=== PATIENT | male | born 1965 | race African-American/Black ===

== ENCOUNTER 2020-07-25 10:54 | Inpatient (IN) | payer OTHER ==
[2020-07-25 13:13] LABS: BASO % 0.2 % (0-2.0); EOS % 0.7 % (0-4.5); HEMATOCRIT 12.5 % (35.4-49); LYMPH % 15.8 % (8-40); MEAN CELL VOLUME 59.8 fl (80-96); MEAN PLT VOLUME 7.2 fl (7.5-11.1); MONO % 10.5 % (3.8-10.2); NEUT % 72.8 % (42.8-82.8); PLATELET COUNT 383 K/MM3 (134-434); RBC 2.09 M/mm3 (4.00-5.60); RDW 19.3 % (11.9-15.9); WHITE BLOOD COUNT 14.4 K/mm3 (4.0-10.0)
[2020-07-25 13:16] LABS: MCH 17.3 pg (25.7-33.7)
[2020-07-25 13:25] LABS: INR 1.49 (0.83-1.09); PROTHROMBIN TIME (PATIENT) 18.1 SEC (9.7-13.0)
[2020-07-25 13:28] LABS: ACTIVATED PTT 35.5 SECONDS (25.2-36.5)
[2020-07-25 13:31] LABS: ALBUMIN 2.8 g/dl (3.4-5.0); BLOOD UREA NITROGEN 19.3 mg/dL (7-18); CALCIUM 9.1 mg/dL (8.5-10.1)
[2020-07-25 13:35] LABS: CREATININE 1.9 mg/dL (0.55-1.3)
[2020-07-25 13:36] LABS: BILIRUBIN,TOTAL 1.2 mg/dL (0.2-1); TOT PROT 9.1 g/dl (6.4-8.2)
[2020-07-25] MEDS ORDERED: FUROSEMIDE 40 MG/4 ML INJECTABLE VIAL IVPUSH ONE ×3 (13:36→19:00)
[2020-07-25 13:45] LABS: HEMOGLOBIN 3.6 GM/dL (11.7-16.9)
[2020-07-25] MEDS ORDERED: FUROSEMIDE 40 MG/4 ML INJECTABLE VIAL ONE ×3 (14:11→21:35)
[2020-07-25] MEDS ORDERED: ACETAMINOPHEN 325 MG TABLET (FP) PO PRN (15:42)
[2020-07-25] MEDS ORDERED: ALBUTEROL SO4 2.5/IPRATROPIUM 0.5 INH SOL 3 ML VIAL.NEB. NEB ONE ×2 (15:48→18:10)
[2020-07-25] MEDS ORDERED: ALBUTEROL SO4 HFA INHALER IH PRN (15:48)
[2020-07-25] MEDS: INSULIN SLIDING SCALE (NOVOLOG) 1 VIAL SQ SCH ×2 (16:58→22:49)
[2020-07-25 20:22] LABS: PH,URINE 5.5 (5.0-8.0); URINE APPEARANCE CLEAR; URINE BILIRUBIN NEGATIVE (NEGATIVE); URINE COLOR YELLOW; URINE GLUCOSE (UA) NEGATIVE (NEGATIVE); URINE KETONE NEGATIVE (NEGATIVE); URINE LEUK ESTERASE NEGATIVE (NEGATIVE); URINE NITRITE NEGATIVE (NEGATIVE); URINE PROTEIN NEGATIVE (NEGATIVE)
[2020-07-25] MEDS ORDERED: THIAMINE HCL 200 MG/2 ML VIAL ONE (21:34)
[2020-07-25] MEDS ORDERED: FOLIC ACID 1 MG TABLET (FP) ONE (21:35)
[2020-07-25] MEDS ORDERED: FUROSEMIDE 40 MG/4 ML INJECTABLE VIAL IVPUSH SCH (22:00)
[2020-07-25] MEDS: FOLIC ACID 1 MG TABLET (FP) PO SCH (22:04)
[2020-07-25] MEDS ORDERED: PANTOPRAZOLE SODIUM 40 MG VIAL ONE (22:13)
[2020-07-25] MEDS: THIAMINE HCL 200 MG/2 ML VIAL IVPB SCH (22:49)
[2020-07-25] MEDS: PANTOPRAZOLE SODIUM 40 MG VIAL IVPUSH SCH (22:50)
[2020-07-25 22:54] LABS: EOS % 0.9 % (0-4.5); HEMATOCRIT 17.7 % (35.4-49); LYMPH % 15.9 % (8-40); MCHC 29.9 g/dl (32.0-35.9); MEAN CELL VOLUME 66.3 fl (80-96); MEAN PLT VOLUME 7.4 fl (7.5-11.1); MONO % 9.5 % (3.8-10.2); NEUT % 72.7 % (42.8-82.8); PLATELET COUNT 371 K/MM3 (134-434); RBC 2.68 M/mm3 (4.00-5.60); RDW 25.5 % (11.9-15.9); WHITE BLOOD COUNT 13.7 K/mm3 (4.0-10.0)
[2020-07-25 23:00] LABS: INR 1.44 (0.83-1.09); MCH 19.8 pg (25.7-33.7); PROTHROMBIN TIME (PATIENT) 17.5 SEC (9.7-13.0)
[2020-07-25 23:02] LABS: HEMOGLOBIN 5.3 GM/dL (11.7-16.9)
[2020-07-26] MEDS ORDERED: FUROSEMIDE 40 MG/4 ML INJECTABLE VIAL ONE ×3 (05:04→14:10)
[2020-07-26] MEDS: FUROSEMIDE 40 MG/4 ML INJECTABLE VIAL IVPB SCH ×2 (05:15→14:19)
[2020-07-26] MEDS ORDERED: FUROSEMIDE 100 MG/10 ML INJECTABLE VIAL IVPB SCH (06:00)
[2020-07-26] MEDS: INSULIN SLIDING SCALE (NOVOLOG) 1 VIAL SQ SCH ×4 (07:25→21:59)
[2020-07-26] MEDS ORDERED: FUROSEMIDE 40 MG/4 ML INJECTABLE VIAL IVPUSH SCH (10:00)
[2020-07-26] MEDS ORDERED: FOLIC ACID 1 MG TABLET (FP) ONE (10:18)
[2020-07-26] MEDS ORDERED: THIAMINE HCL 200 MG/2 ML VIAL ONE (10:18)
[2020-07-26] MEDS ORDERED: PANTOPRAZOLE 40 MG TABLET ONE (10:18)
[2020-07-26] MEDS ORDERED: PANTOPRAZOLE SODIUM 40 MG VIAL ONE (10:21)
[2020-07-26] MEDS: PANTOPRAZOLE SODIUM 40 MG VIAL IVPUSH SCH ×2 (10:30→22:10)
[2020-07-26] MEDS: FOLIC ACID 1 MG TABLET (FP) PO SCH (10:30)
[2020-07-26] MEDS: THIAMINE HCL 200 MG/2 ML VIAL IVPB SCH (10:30)
[2020-07-26] MEDS ORDERED: FUROSEMIDE 40 MG/4 ML INJECTABLE VIAL IVPUSH ONE ×2 (11:27→19:00)
[2020-07-26 13:04] LABS: ALLENS TEST POSITIVE; ARTERIAL BLD GAS O2 SATURATION 95.6 mmHg (95-98); ARTERIAL BLOOD GAS BASE EXCESS 4.7 mmol/L (-2-2); ARTERIAL BLOOD GAS PO2 74.8 mmHg (80-100); ARTERIAL BLOOD GAS pH 7.457 (7.350-7.450)
[2020-07-26] MEDS ORDERED: ALBUTEROL SO4 2.5/IPRATROPIUM 0.5 INH SOL 3 ML VIAL.NEB. NEB PRN (13:23)
[2020-07-26 13:50] LABS: HEMATOCRIT 19.5 % (35.4-49); MCH 20.8 pg (25.7-33.7); MCHC 31.2 g/dl (32.0-35.9); MEAN CELL VOLUME 66.7 fl (80-96); MEAN PLT VOLUME 7.8 fl (7.5-11.1); PLATELET COUNT 363 K/MM3 (134-434); RBC 2.92 M/mm3 (4.00-5.60); RDW 26.9 % (11.9-15.9)
[2020-07-26 14:02] LABS: HEMOGLOBIN 6.1 GM/dL (11.7-16.9)
[2020-07-26 14:09] LABS: ALBUMIN 2.8 g/dl (3.4-5.0); CALCIUM 9.1 mg/dL (8.5-10.1)
[2020-07-26 14:10] LABS: BLOOD UREA NITROGEN 17.8 mg/dL (7-18)
[2020-07-26 14:13] LABS: CREATININE 1.6 mg/dL (0.55-1.3)
[2020-07-26 14:14] LABS: BILIRUBIN,TOTAL 2.7 mg/dL (0.2-1); TOT PROT 9.4 g/dl (6.4-8.2)
[2020-07-26 15:54] LABS: ANISOCYTOSIS 1+; MACROCYTOSIS 1+; PLATELET ESTIMATE NORMAL
[2020-07-26] MEDS ORDERED: POTASSIUM CHLORIDE TABS 20 MEQ TABLET.ER (FP) PO ONE ×2 (17:11→17:20)
[2020-07-26 22:33] VITALS: BMI 43.0
[2020-07-26 23:26] LABS: HEMATOCRIT 23.9 % (35.4-49); HEMOGLOBIN 7.4 GM/dL (11.7-16.9); MCH 21.7 pg (25.7-33.7); MCHC 31.1 g/dl (32.0-35.9); MEAN CELL VOLUME 69.8 fl (80-96); PLATELET COUNT 387 K/MM3 (134-434); RBC 3.42 M/mm3 (4.00-5.60); RDW 28.1 % (11.9-15.9)
[2020-07-27] MEDS: FUROSEMIDE 40 MG/4 ML INJECTABLE VIAL IVPB SCH ×2 (05:38→15:30)
[2020-07-27] MEDS: INSULIN SLIDING SCALE (NOVOLOG) 1 VIAL SQ SCH ×4 (07:01→21:29)
[2020-07-27 07:25] LABS: N-TERMINAL BNP 446.6 pg/ml (5-125)
[2020-07-27 07:55] LABS: CALCIUM 9.1 mg/dL (8.5-10.1)
[2020-07-27 07:56] LABS: BLOOD UREA NITROGEN 17.4 mg/dL (7-18)
[2020-07-27 07:59] LABS: CREATININE 1.5 mg/dL (0.55-1.3)
[2020-07-27 08:51] LABS: HEMATOCRIT 22.3 % (35.4-49); HEMOGLOBIN 7.1 GM/dL (11.7-16.9); MCH 22.8 pg (25.7-33.7); MCHC 31.8 g/dl (32.0-35.9); MEAN CELL VOLUME 71.6 fl (80-96); MEAN PLT VOLUME 8.6 fl (7.5-11.1); PLATELET COUNT 220 K/MM3 (134-434); RBC 3.11 M/mm3 (4.00-5.60); RDW 27.7 % (11.9-15.9); WHITE BLOOD COUNT 13.4 K/mm3 (4.0-10.0)
[2020-07-27] MEDS ORDERED: PT OWN MED DRAWER 7, Y5N ONE (10:04)
[2020-07-27] MEDS: FOLIC ACID 1 MG TABLET (FP) PO SCH (10:12)
[2020-07-27] MEDS: PANTOPRAZOLE SODIUM 40 MG VIAL IVPUSH SCH ×2 (10:12→21:26)
[2020-07-27] MEDS: THIAMINE HCL 200 MG/2 ML VIAL IVPB SCH (10:30)
[2020-07-27] MEDS: NICOTINE 14 MG/24 HOURS TOPICAL PATCH TD SCH (11:26)
[2020-07-27 16:01] LABS: HEMATOCRIT 25.8 % (35.4-49); HEMOGLOBIN 8.1 GM/dL (11.7-16.9); MCH 22.4 pg (25.7-33.7); MCHC 31.4 g/dl (32.0-35.9); MEAN CELL VOLUME 71.5 fl (80-96); MEAN PLT VOLUME 7.4 fl (7.5-11.1); PLATELET COUNT 366 K/MM3 (134-434); RBC 3.61 M/mm3 (4.00-5.60); RDW 28.9 % (11.9-15.9); WHITE BLOOD COUNT 15.8 K/mm3 (4.0-10.0)
[2020-07-27] MEDS ORDERED: AMPICILLIN SODIUM 1 GM VIAL ONE (21:14)
[2020-07-27] MEDS ORDERED: SODIUM CHLORIDE 100 ML IVPB ONE (21:14)
[2020-07-27] MEDS: AMPICILLIN - 1 GM in SODIUM CHLORIDE 100 ML IVPB SCH (21:26)
[2020-07-28] MEDS ORDERED: AMPICILLIN SODIUM 1 GM VIAL ONE ×4 (04:56→21:08)
[2020-07-28] MEDS ORDERED: SODIUM CHLORIDE 100 ML IVPB ONE ×4 (04:56→21:08)
[2020-07-28] MEDS: AMPICILLIN - 1 GM in SODIUM CHLORIDE 100 ML IVPB SCH ×4 (05:00→21:20)
[2020-07-28] MEDS: FUROSEMIDE 40 MG/4 ML INJECTABLE VIAL IVPB SCH (05:32)
[2020-07-28] MEDS: INSULIN SLIDING SCALE (NOVOLOG) 1 VIAL SQ SCH ×4 (06:22→21:20)
[2020-07-28] MEDS ORDERED: PT OWN MED DRAWER 7, Y5N ONE (08:51)
[2020-07-28] MEDS: THIAMINE HCL 200 MG/2 ML VIAL IVPB SCH (09:01)
[2020-07-28] MEDS: FOLIC ACID 1 MG TABLET (FP) PO SCH (09:01)
[2020-07-28] MEDS: PANTOPRAZOLE SODIUM 40 MG VIAL IVPUSH SCH ×2 (09:01→21:20)
[2020-07-28 09:35] LABS: BASO % 0.3 % (0-2.0); EOS % 1.9 % (0-4.5); HEMATOCRIT 25.8 % (35.4-49); MCH 22.7 pg (25.7-33.7); MCHC 31.1 g/dl (32.0-35.9); MEAN PLT VOLUME 7.8 fl (7.5-11.1); MONO % 8.8 % (3.8-10.2); PLATELET COUNT 387 K/MM3 (134-434); RBC 3.54 M/mm3 (4.00-5.60); RDW 28.4 % (11.9-15.9)
[2020-07-28] MEDS: NICOTINE 14 MG/24 HOURS TOPICAL PATCH TD SCH (09:48)
[2020-07-28 09:59] LABS: ALBUMIN 2.8 g/dl (3.4-5.0); CALCIUM 8.9 mg/dL (8.5-10.1)
[2020-07-28 10:02] LABS: CREATININE 1.4 mg/dL (0.55-1.3)
[2020-07-28 10:03] LABS: BILIRUBIN,TOTAL 2.1 mg/dL (0.2-1)
[2020-07-28 10:04] LABS: TOT PROT 9.1 g/dl (6.4-8.2)
[2020-07-28] MEDS: FUROSEMIDE 40 MG TABLET (FP) PO SCH (13:58)
[2020-07-29] MEDS ORDERED: SODIUM CHLORIDE 100 ML IVPB ONE ×3 (01:46→21:18)
[2020-07-29] MEDS ORDERED: AMPICILLIN SODIUM 1 GM VIAL ONE ×4 (01:46→21:25)
[2020-07-29] MEDS: AMPICILLIN - 1 GM in SODIUM CHLORIDE 100 ML IVPB SCH ×4 (02:03→21:50)
[2020-07-29 06:49] LABS: BASO % 0.3 % (0-2.0); EOS % 2.1 % (0-4.5); HEMATOCRIT 23.5 % (35.4-49); HEMOGLOBIN 7.4 GM/dL (11.7-16.9); LYMPH % 21.7 % (8-40); MCH 22.9 pg (25.7-33.7); MCHC 31.4 g/dl (32.0-35.9); MEAN CELL VOLUME 72.8 fl (80-96); MEAN PLT VOLUME 7.6 fl (7.5-11.1); MONO % 10.8 % (3.8-10.2); NEUT % 65.1 % (42.8-82.8); PLATELET COUNT 307 K/MM3 (134-434); RBC 3.22 M/mm3 (4.00-5.60); RDW 30.5 % (11.9-15.9); WHITE BLOOD COUNT 12.8 K/mm3 (4.0-10.0)
[2020-07-29] MEDS: FUROSEMIDE 40 MG TABLET (FP) PO SCH ×2 (06:49→13:44)
[2020-07-29] MEDS: INSULIN SLIDING SCALE (NOVOLOG) 1 VIAL SQ SCH ×4 (06:49→22:04)
[2020-07-29 07:18] LABS: BLOOD UREA NITROGEN 16.6 mg/dL (7-18); CALCIUM 8.2 mg/dL (8.5-10.1); MAGNESIUM 1.3 mg/dL (1.8-2.4)
[2020-07-29 07:20] LABS: ALBUMIN 2.6 g/dl (3.4-5.0)
[2020-07-29 07:21] LABS: CREATININE 1.4 mg/dL (0.55-1.3)
[2020-07-29 07:23] LABS: BILIRUBIN,TOTAL 1.5 mg/dL (0.2-1); TOT PROT 8.1 g/dl (6.4-8.2)
[2020-07-29] MEDS ORDERED: PT OWN MED DRAWER 7, Y5N ONE ×3 (09:27→21:19)
[2020-07-29] MEDS: THIAMINE HCL 200 MG/2 ML VIAL IVPB SCH (09:41)
[2020-07-29] MEDS: PANTOPRAZOLE SODIUM 40 MG VIAL IVPUSH SCH ×2 (09:41→21:51)
[2020-07-29] MEDS: FOLIC ACID 1 MG TABLET (FP) PO SCH (09:41)
[2020-07-29] MEDS: POTASSIUM CHLORIDE TABS 20 MEQ TABLET.ER (FP) PO SCH ×2 (09:41→21:50)
[2020-07-29] MEDS: NICOTINE 14 MG/24 HOURS TOPICAL PATCH TD SCH (09:42)
[2020-07-29 11:09] LABS: INR 1.21 (0.83-1.09); PROTHROMBIN TIME (PATIENT) 14.8 SEC (9.7-13.0)
[2020-07-29 11:12] LABS: ACTIVATED PTT 35.1 SECONDS (25.2-36.5)
[2020-07-29 14:48] LABS: URINE APPEARANCE CLEAR; URINE BILIRUBIN NEGATIVE (NEGATIVE); URINE COLOR DK YELLOW; URINE GLUCOSE (UA) NEGATIVE (NEGATIVE); URINE KETONE NEGATIVE (NEGATIVE); URINE LEUK ESTERASE NEGATIVE (NEGATIVE); URINE NITRITE NEGATIVE (NEGATIVE); URINE PROTEIN NEGATIVE (NEGATIVE)
[2020-07-29 18:59] LABS: BASO % 0.2 % (0-2.0); EOS % 2.2 % (0-4.5); HEMATOCRIT 25.9 % (35.4-49); HEMOGLOBIN 8.1 GM/dL (11.7-16.9); LYMPH % 18.3 % (8-40); MCH 23.4 pg (25.7-33.7); MCHC 31.4 g/dl (32.0-35.9); MEAN CELL VOLUME 74.5 fl (80-96); MEAN PLT VOLUME 7.8 fl (7.5-11.1); MONO % 9.6 % (3.8-10.2); NEUT % 69.7 % (42.8-82.8); PLATELET COUNT 320 K/MM3 (134-434); RBC 3.48 M/mm3 (4.00-5.60); RDW 30.4 % (11.9-15.9); WHITE BLOOD COUNT 12.5 K/mm3 (4.0-10.0)
[2020-07-30] MEDS ORDERED: AMPICILLIN SODIUM 1 GM VIAL ONE ×4 (01:26→21:12)
[2020-07-30] MEDS ORDERED: SODIUM CHLORIDE 100 ML IVPB ONE ×4 (01:27→21:13)
[2020-07-30] MEDS: AMPICILLIN - 1 GM in SODIUM CHLORIDE 100 ML IVPB SCH ×4 (02:09→21:59)
[2020-07-30] MEDS: FUROSEMIDE 40 MG TABLET (FP) PO SCH ×2 (07:01→13:51)
[2020-07-30] MEDS: INSULIN SLIDING SCALE (NOVOLOG) 1 VIAL SQ SCH ×4 (07:02→21:59)
[2020-07-30 08:12] LABS: BLOOD UREA NITROGEN 13.7 mg/dL (7-18); CALCIUM 8.4 mg/dL (8.5-10.1); MAGNESIUM 1.5 mg/dL (1.8-2.4)
[2020-07-30 08:13] LABS: ALBUMIN 2.5 g/dl (3.4-5.0)
[2020-07-30 08:15] LABS: CREATININE 1.3 mg/dL (0.55-1.3)
[2020-07-30 08:16] LABS: BILIRUBIN,TOTAL 1.4 mg/dL (0.2-1); PHOSPHOROUS 3.6 mg/dL (2.5-4.9); TOT PROT 8.5 g/dl (6.4-8.2)
[2020-07-30] MEDS ORDERED: POTASSIUM CHLORIDE TABS 20 MEQ TABLET.ER (FP) PO ONE (08:17)
[2020-07-30 08:18] LABS: BASO % 0.3 % (0-2.0); EOS % 2.3 % (0-4.5); HEMATOCRIT 24.9 % (35.4-49); HEMOGLOBIN 7.9 GM/dL (11.7-16.9); LYMPH % 20.2 % (8-40); MCH 23.4 pg (25.7-33.7); MCHC 31.7 g/dl (32.0-35.9); MEAN CELL VOLUME 73.7 fl (80-96); MEAN PLT VOLUME 7.9 fl (7.5-11.1); MONO % 9.1 % (3.8-10.2); NEUT % 68.1 % (42.8-82.8); PLATELET COUNT 299 K/MM3 (134-434); RBC 3.37 M/mm3 (4.00-5.60); RDW 30.9 % (11.9-15.9); WHITE BLOOD COUNT 11.8 K/mm3 (4.0-10.0)
[2020-07-30] MEDS ORDERED: PT OWN MED DRAWER 7, Y5N ONE ×3 (08:34→12:44)
[2020-07-30] MEDS ORDERED: MIDAZOLAM HCL 2 MG/2 ML SINGLE DOSE VIAL ONE ×2 (10:08)
[2020-07-30] MEDS ORDERED: LIDOCAINE VISCOUS 2% ORAL/TOP 20 ML UNIT-DOSE CUP ONE (10:08)
[2020-07-30] MEDS ORDERED: MAGNESIUM SULF 50% (8.12 MEQ/2 ML-1 GM VIAL) IVPB ONE (11:34)
[2020-07-30] MEDS: PANTOPRAZOLE 40 MG TABLET PO SCH (12:45)
[2020-07-30] MEDS: NICOTINE 14 MG/24 HOURS TOPICAL PATCH TD SCH (12:45)
[2020-07-30] MEDS: FOLIC ACID 1 MG TABLET (FP) PO SCH (12:45)
[2020-07-30] MEDS: THIAMINE HCL 200 MG/2 ML VIAL IVPB SCH (12:45)
[2020-07-30] MEDS: PANTOPRAZOLE SODIUM 40 MG VIAL IVPUSH SCH (12:54)
[2020-07-30 13:07] LABS: HEP B CORE AB, TOT Negative (Negative)
[2020-07-30] MEDS ORDERED: BISACODYL 5 MG TABLET.DR (FP) PO ONE (16:00)
[2020-07-30] MEDS ORDERED: PEG 3350/NA SULF BICARB CL/KCL 4000 ML SOLN.RECON PO ONE (17:00)
[2020-07-30] MEDS: POTASSIUM CHLORIDE TABS 20 MEQ TABLET.ER (FP) PO SCH (17:01)
[2020-07-30] MEDS ORDERED: MELATONIN 5 MG TABLETS PO PRN (22:00)
[2020-07-31] MEDS ORDERED: AMPICILLIN SODIUM 1 GM VIAL ONE ×4 (03:03→21:07)
[2020-07-31] MEDS ORDERED: SODIUM CHLORIDE 100 ML IVPB ONE ×4 (03:04→21:07)
[2020-07-31] MEDS: AMPICILLIN - 1 GM in SODIUM CHLORIDE 100 ML IVPB SCH ×4 (03:08→21:29)
[2020-07-31] MEDS: POTASSIUM CHLORIDE TABS 20 MEQ TABLET.ER (FP) PO SCH (06:18)
[2020-07-31] MEDS: INSULIN SLIDING SCALE (NOVOLOG) 1 VIAL SQ SCH ×4 (06:30→21:30)
[2020-07-31] MEDS: FUROSEMIDE 40 MG TABLET (FP) PO SCH ×2 (06:49→15:08)
[2020-07-31 07:39] LABS: BASO % 0.6 % (0-2.0); EOS % 3.2 % (0-4.5); HEMATOCRIT 24.3 % (35.4-49); HEMOGLOBIN 7.9 GM/dL (11.7-16.9); LYMPH % 17.6 % (8-40); MCH 25.1 pg (25.7-33.7); MCHC 32.7 g/dl (32.0-35.9); MEAN CELL VOLUME 76.7 fl (80-96); MEAN PLT VOLUME 8.8 fl (7.5-11.1); MONO % 8.3 % (3.8-10.2); NEUT % 70.3 % (42.8-82.8); PLATELET COUNT 257 K/MM3 (134-434); RBC 3.16 M/mm3 (4.00-5.60); RDW 31.5 % (11.9-15.9); WHITE BLOOD COUNT 10.9 K/mm3 (4.0-10.0)
[2020-07-31 07:52] LABS: ALBUMIN 2.6 g/dl (3.4-5.0); CALCIUM 8.6 mg/dL (8.5-10.1)
[2020-07-31 07:55] LABS: CREATININE 1.2 mg/dL (0.55-1.3)
[2020-07-31 07:57] LABS: BILIRUBIN,TOTAL 1.3 mg/dL (0.2-1); TOT PROT 8.5 g/dl (6.4-8.2)
[2020-07-31] MEDS ORDERED: PT OWN MED DRAWER 7, Y5N ONE (07:59)
[2020-07-31] MEDS: FOLIC ACID 1 MG TABLET (FP) PO SCH (09:34)
[2020-07-31] MEDS: PANTOPRAZOLE 40 MG TABLET PO SCH (09:34)
[2020-07-31] MEDS: NICOTINE 14 MG/24 HOURS TOPICAL PATCH TD SCH (09:35)
[2020-07-31] MEDS: THIAMINE HCL 200 MG/2 ML VIAL IVPB SCH (10:19)
[2020-07-31] MEDS ORDERED: FUROSEMIDE 40 MG/4 ML INJECTABLE VIAL IVPUSH ONE ×2 (12:15→16:00)
[2020-07-31] MEDS ORDERED: BISACODYL 5 MG TABLET.DR (FP) PO ONE (15:00)
[2020-07-31] MEDS ORDERED: POLYETHYLENE GLYCOL 3350 255 GM BTL PO ONE (16:00)
[2020-07-31] MEDS: IRON POLYSACCHARIDES 150 MG CAPSULE PO SCH (17:05)
[2020-08-01] MEDS ORDERED: AMPICILLIN SODIUM 1 GM VIAL ONE ×3 (03:36→16:44)
[2020-08-01] MEDS ORDERED: SODIUM CHLORIDE 100 ML IVPB ONE ×3 (03:37→16:44)
[2020-08-01] MEDS: AMPICILLIN - 1 GM in SODIUM CHLORIDE 100 ML IVPB SCH ×3 (03:39→17:10)
[2020-08-01] MEDS: INSULIN SLIDING SCALE (NOVOLOG) 1 VIAL SQ SCH ×4 (06:03→21:22)
[2020-08-01] MEDS: FUROSEMIDE 40 MG TABLET (FP) PO SCH ×2 (06:03→13:28)
[2020-08-01] MEDS ORDERED: PT OWN MED DRAWER 7, Y5N ONE (07:53)
[2020-08-01 08:03] LABS: BASO % 0.2 % (0-2.0); EOS % 3.3 % (0-4.5); HEMATOCRIT 27.8 % (35.4-49); HEMOGLOBIN 9.1 GM/dL (11.7-16.9); LYMPH % 17.8 % (8-40); MCH 25.4 pg (25.7-33.7); MCHC 32.6 g/dl (32.0-35.9); MEAN PLT VOLUME 8.5 fl (7.5-11.1); MONO % 8.5 % (3.8-10.2); NEUT % 70.2 % (42.8-82.8); PLATELET COUNT 260 K/MM3 (134-434); RBC 3.56 M/mm3 (4.00-5.60); WHITE BLOOD COUNT 10.6 K/mm3 (4.0-10.0)
[2020-08-01 08:32] LABS: ALBUMIN 2.6 g/dl (3.4-5.0); BLOOD UREA NITROGEN 7.7 mg/dL (7-18)
[2020-08-01 08:34] LABS: BILIRUBIN,TOTAL 1.7 mg/dL (0.2-1); TOT PROT 8.7 g/dl (6.4-8.2)
[2020-08-01 08:35] LABS: CALCIUM 8.9 mg/dL (8.5-10.1); CREATININE 1.1 mg/dL (0.55-1.3)
[2020-08-01 08:36] LABS: MAGNESIUM 1.8 mg/dL (1.8-2.4); PHOSPHOROUS 3.9 mg/dL (2.5-4.9)
[2020-08-01] MEDS ORDERED: MIDAZOLAM HCL 2 MG/2 ML SINGLE DOSE VIAL ONE (11:10)
[2020-08-01] MEDS: NICOTINE 14 MG/24 HOURS TOPICAL PATCH TD SCH (13:00)
[2020-08-01] MEDS: PANTOPRAZOLE 40 MG TABLET PO SCH (13:01)
[2020-08-01] MEDS: IRON POLYSACCHARIDES 150 MG CAPSULE PO SCH (13:01)
[2020-08-01] MEDS: FOLIC ACID 1 MG TABLET (FP) PO SCH (13:01)
[2020-08-01] MEDS: THIAMINE HCL 200 MG/2 ML VIAL IVPB SCH (13:50)
[2020-08-02] MEDS: FUROSEMIDE 40 MG TABLET (FP) PO SCH ×2 (05:34→14:56)
[2020-08-02] MEDS: INSULIN SLIDING SCALE (NOVOLOG) 1 VIAL SQ SCH ×2 (06:39→11:48)
[2020-08-02] MEDS ORDERED: PT OWN MED DRAWER 7, Y5N ONE (07:48)
[2020-08-02 08:55] LABS: BASO % 0.8 % (0-2.0); EOS % 3.5 % (0-4.5); HEMATOCRIT 27.9 % (35.4-49); LYMPH % 19.6 % (8-40); MCH 25.1 pg (25.7-33.7); MCHC 32.2 g/dl (32.0-35.9); MEAN PLT VOLUME 7.9 fl (7.5-11.1); MONO % 8.8 % (3.8-10.2); NEUT % 67.3 % (42.8-82.8); PLATELET COUNT 273 K/MM3 (134-434); RBC 3.57 M/mm3 (4.00-5.60); RDW 31.2 % (11.9-15.9); WHITE BLOOD COUNT 10.4 K/mm3 (4.0-10.0)
[2020-08-02] MEDS: NICOTINE 14 MG/24 HOURS TOPICAL PATCH TD SCH (09:05)
[2020-08-02 09:36] LABS: CALCIUM 8.8 mg/dL (8.5-10.1)
[2020-08-02 09:37] LABS: ALBUMIN 2.6 g/dl (3.4-5.0); BLOOD UREA NITROGEN 7.8 mg/dL (7-18); MAGNESIUM 1.8 mg/dL (1.8-2.4)
[2020-08-02 09:40] LABS: CREATININE 1.2 mg/dL (0.55-1.3); PHOSPHOROUS 3.9 mg/dL (2.5-4.9)
[2020-08-02 09:41] LABS: BILIRUBIN,TOTAL 1.2 mg/dL (0.2-1)
[2020-08-02 09:43] LABS: TOT PROT 8.4 g/dl (6.4-8.2)
[2020-08-02] MEDS ORDERED: LISINOPRIL 5 MG TABLET PO SCH (10:00)
[2020-08-02] MEDS ORDERED: SODIUM ZIRCONIUM CYCLOSILICATE (LOKELMA) 5 GM PACKET PO ONE (10:00)
[2020-08-02] MEDS ORDERED: MIDAZOLAM HCL 2 MG/2 ML SINGLE DOSE VIAL ONE ×2 (12:26)
[2020-08-02] MEDS ORDERED: TETRACAINE/BENZOCAINE/BUTAMBEN 20 GM SPR TP ONE ×2 (12:27→12:30)
[2020-08-02] MEDS ORDERED: LIDOCAINE VISCOUS 2% ORAL/TOP 20 ML UNIT-DOSE CUP ONE (12:27)
[2020-08-02] MEDS ORDERED: LIDOCAINE VISCOUS 2% ORAL/TOP 100 ML BOTTLE MM ONE (12:30)
[2020-08-02 13:34] VITALS: TEMP 98
[2020-08-02 14:23] VITALS: BP 143/69; PULSE 99
[2020-08-02] MEDS: PANTOPRAZOLE 40 MG TABLET PO SCH (14:40)
[2020-08-02] MEDS: FOLIC ACID 1 MG TABLET (FP) PO SCH (14:40)
[2020-08-02] MEDS: IRON POLYSACCHARIDES 150 MG CAPSULE PO SCH (14:40)
[2020-08-02] MEDS: THIAMINE HCL 200 MG/2 ML VIAL IVPB SCH (14:41)
[2020-08-03] MEDS ORDERED: ASCORBIC ACID 500 MG TABLET (FP) PO SCH (10:00)
== END 2020-08-02 18:45 | disposition home or self-care (01) | DRG 378 ==
LOC: JER 10:54 → JERBED 15:11 → J4S 07-26 21:20
PROVIDERS: ADMIT Internal Medicine; ATTEND Internal Medicine
PROC: 30233N1 Transfusion of Nonautologous Red Blood Cells into Peripheral Vein, Percutaneous Approach (ICD-10-PCS; 2020-07-25)
PROC: 0DB68ZX Excision of Stomach, Via Natural or Artificial Opening Endoscopic, Diagnostic (ICD-10-PCS; 2020-07-30)
PROC: 0DB98ZX Excision of Duodenum, Via Natural or Artificial Opening Endoscopic, Diagnostic (ICD-10-PCS; principal; 2020-07-30 10:17)
PROC: 0DBP8ZX Excision of Rectum, Via Natural or Artificial Opening Endoscopic, Diagnostic (ICD-10-PCS; 2020-08-01)
PROC: 0DJ08ZZ Inspection of Upper Intestinal Tract, Via Natural or Artificial Opening Endoscopic (ICD-10-PCS; 2020-08-02)
DX: K31.811 Angiodysplasia of stomach and duodenum with bleeding (principal); D62 Acute posthemorrhagic anemia; I24.8 Other forms of acute ischemic heart disease; N17.9 Acute kidney failure, unspecified; N39.0 Urinary tract infection, site not specified; Z68.41 Body mass index [BMI] 40.0-44.9, adult; E66.01 Morbid (severe) obesity due to excess calories; J44.9 Chronic obstructive pulmonary disease, unspecified; E11.9 Type 2 diabetes mellitus without complications; E78.5 Hyperlipidemia, unspecified; Z79.84 Long term (current) use of oral hypoglycemic drugs; D50.9 Iron deficiency anemia, unspecified; D72.829 Elevated white blood cell count, unspecified; F17.210 Nicotine dependence, cigarettes, uncomplicated; G47.33 Obstructive sleep apnea (adult) (pediatric); R94.5 Abnormal results of liver function studies; R16.0 Hepatomegaly, not elsewhere classified; E88.09 Other disorders of plasma-protein metabolism, not elsewhere classified; N18.9 Chronic kidney disease, unspecified; K31.89 Other diseases of stomach and duodenum; K44.9 Diaphragmatic hernia without obstruction or gangrene; K57.30 Diverticulosis of large intestine without perforation or abscess without bleeding; K55.20 Angiodysplasia of colon without hemorrhage; K64.8 Other hemorrhoids; K62.1 Rectal polyp; B95.2 Enterococcus as the cause of diseases classified elsewhere; K76.0 Fatty (change of) liver, not elsewhere classified; I36.1 Nonrheumatic tricuspid (valve) insufficiency
CPT/HCPCS: 36415; 36430; 36511; 36600; 71045-TC-FY; 76705-TC; 76775-TC; 80048; 80053; 80061; 81003; 82272; 82436; 82550; 82570; 82607; 82728; 82746; 82803; 82962; 83036; 83540; 83550; 83721; 83735; 83880; 84100; 84133; 84155; 84165; 84300; 84439; 84443; 84484; 85025; 85027; 85045; 85610; 85730; 86704; 86706; 86707; 86708; 86709; 86803; 86850; 86900; 86901; 86922; 87086; 87186; 87340; 88305-TC; 93005; 93010; 93306-TC; 99285-25; C9803; P9016; P9058; U0003; U0005

== ENCOUNTER 2021-01-26 15:17 | Inpatient (IN) | payer OTHER ==
[2021-01-26 15:41] VITALS: BMI 43.9
[2021-01-26] MEDS ORDERED: SODIUM CHLORIDE IV ONE (16:17)
[2021-01-26] MEDS ORDERED: LACTATED RINGERS SOLUTION 1,000 ML IV STA (17:12)
[2021-01-26] MEDS ORDERED: methylPREDNISolone NA SUCC 125 MG/2 ML VIAL IVPUSH ONE (17:45)
[2021-01-26 17:58] LABS: VENOUS BASE EXCESS 2.8 mmol/L (-2-2); VENOUS O2 SATURATION 36.3 % (70-80); VENOUS PCO2 43.4 mmHg (38-52); VENOUS PH 7.421 (7.310-7.410)
[2021-01-26 18:01] LABS: BASO % 0.1 % (0-2.0); EOS % 0.4 % (0-4.5); HEMATOCRIT 22.3 % (35.4-49); HEMOGLOBIN 7.5 GM/dL (11.7-16.9); LYMPH % 15.8 % (8-40); MCH 28.4 pg (25.7-33.7); MCHC 33.9 g/dl (32.0-35.9); MEAN CELL VOLUME 83.6 fl (80-96); MEAN PLT VOLUME 6.9 fl (7.5-11.1); MONO % 11.3 % (3.8-10.2); NEUT % 72.4 % (42.8-82.8); PLATELET COUNT 327 10^3/uL (134-434); RBC 2.66 M/mm3 (4.00-5.60); RDW 20.9 % (11.9-15.9); WHITE BLOOD COUNT 16.2 K/mm3 (4.0-10.0)
[2021-01-26] MEDS ORDERED: ALBUTEROL SO4 2.5/IPRATROPIUM 0.5 INH SOL 3 ML VIAL.NEB. NEB ONE ×3 (18:05→21:15)
[2021-01-26] MEDS ORDERED: methylPREDNISolone NA SUCC 125 MG/2 ML VIAL ONE (18:05)
[2021-01-26 18:09] LABS: INR 1.33 (0.83-1.09); PROTHROMBIN TIME (PATIENT) 15.6 SEC (9.7-13.0)
[2021-01-26 18:12] LABS: ACTIVATED PTT 33.5 SECONDS (25.2-36.5)
[2021-01-26] MEDS: ALBUTEROL SO4 2.5/IPRATROPIUM 0.5 INH SOL 3 ML VIAL.NEB. NEB SCH ×3 (18:12→18:30)
[2021-01-26 18:23] LABS: LACTIC ACID 3.9 mmol/L (0.4-2.0)
[2021-01-26 18:27] LABS: CHLORIDE 88 mmol/L (98-107); SODIUM 129 mmol/L (136-145)
[2021-01-26 18:31] LABS: ALBUMIN 1.8 g/dl (3.4-5.0); BLOOD UREA NITROGEN 18.7 mg/dL (7-18); CALCIUM 7.8 mg/dL (8.5-10.1); CO2 25 mmol/L (21-32); GLUCOSE,RANDOM 116 mg/dL (74-106)
[2021-01-26 18:33] LABS: SGPT/ALT 26 U/L (13-61)
[2021-01-26 18:34] LABS: SGOT/AST 99 U/L (15-37)
[2021-01-26 18:36] LABS: BILIRUBIN,TOTAL 3.6 mg/dL (0.2-1); TOT PROT 7.6 g/dl (6.4-8.2)
[2021-01-26 18:37] LABS: ALK PHOS 331 U/L (45-117)
[2021-01-26] MEDS ORDERED: PANTOPRAZOLE SODIUM 40 MG VIAL IVPUSH ONE ×2 (18:37→18:45)
[2021-01-26 18:39] LABS: N-TERMINAL BNP 472.5 pg/ml (5-125)
[2021-01-26 18:42] LABS: ANION GAP 16 MMOL/L (8-16)
[2021-01-26] MEDS ORDERED: ASPIRIN 81 MG CHEWABLE TABLETS PO ONE (18:45)
[2021-01-26] MEDS ORDERED: CEFTRIAXONE 1,000 MG in DEXTROSE 5%-WATER - 50 ML IVPB ONE (18:46)
[2021-01-26] MEDS ORDERED: AZITHROMYCIN IVPB 500 MG in DEXTROSE 5%-WATER - 250 ML IVPB ONE (18:46)
[2021-01-26] MEDS ORDERED: ASPIRIN 81 MG CHEWABLE TABLETS ONE (18:57)
[2021-01-26] MEDS ORDERED: AZITHROMYCIN IVPB 500 MG/250 ML BAG IVPB ONE (18:58)
[2021-01-26] MEDS ORDERED: CEFTRIAXONE 1 GM/50 ML BAG ONE (18:58)
[2021-01-26] MEDS ORDERED: PANTOPRAZOLE SODIUM 40 MG VIAL ONE (18:58)
[2021-01-26] MEDS ORDERED: POTASSIUM CHLORIDE TABS 20 MEQ TABLET.ER (FP) PO ONE (19:14)
[2021-01-26] MEDS ORDERED: SODIUM CHLORIDE 1,000 ML IV SCH ×2 (19:45→21:22)
[2021-01-26] MEDS ORDERED: POTASSIUM CHLORIDE TABS 10 MEQ TABLET.ER (FP) ONE (20:23)
[2021-01-26] MEDS ORDERED: PT OWN MED DRAWER 7, Y5N ONE (20:24)
[2021-01-26] MEDS ORDERED: LORazepam 1 MG TABLET PO PRN (20:52)
[2021-01-26 21:15] LABS: MAGNESIUM 1.5 mg/dL (1.8-2.4)
[2021-01-26] MEDS ORDERED: THIAMINE HCL 200 MG/2 ML VIAL ONE (21:15)
[2021-01-26] MEDS ORDERED: FOLIC ACID 1 MG TABLET (FP) ONE (21:15)
[2021-01-26] MEDS ORDERED: PANTOPRAZOLE 40 MG TABLET ONE (21:15)
[2021-01-26] MEDS ORDERED: KCL 10 MEQ IVPB 10 MEQ/100 ML INFUS.BAG IVPB ONE (21:15)
[2021-01-26 21:19] LABS: IRON SERUM 183 ug/dL (50-175); TOTAL IRON BINDING CAPACITY 195 ug/dL (250-450)
[2021-01-26] MEDS: THIAMINE HCL 200 MG/2 ML VIAL IVPB SCH (21:46)
[2021-01-26] MEDS: KCL 10 MEQ IVPB 10 MEQ/100 ML INFUS.BAG IVPB SCH (21:46)
[2021-01-26] MEDS: FOLIC ACID 1 MG TABLET (FP) PO SCH (21:46)
[2021-01-26] MEDS: INSULIN SLIDING SCALE (NOVOLOG) 1 VIAL SQ SCH (21:46)
[2021-01-26] MEDS: NICOTINE 14 MG/24 HOURS TOPICAL PATCH TD SCH (21:46)
[2021-01-26] MEDS: PANTOPRAZOLE 40 MG TABLET PO SCH (21:46)
[2021-01-26] MEDS: BUDESONIDE/FORMETEROL FUMARATE 80/4.5 mcg INHALER IH SCH (21:47)
[2021-01-26] MEDS ORDERED: PIPERACILLIN/TAZOB 3.375 GM 3.375 GM in DEXTROSE 5%-WATER - 50 ML IVPB ONE (22:49)
[2021-01-26] MEDS ORDERED: VANCOMYCIN 1 GM in D5W (PRE-DOCKED) 1,000 MG/250 ML IVPB ONE (22:50)
[2021-01-26] MEDS ORDERED: PIPERACILLIN/TAZOBACTAM 3.375 GM VIAL IVPB ONE (23:45)
[2021-01-26] MEDS ORDERED: DEXTROSE 5%-WATER - 50 ML IVPB ONE (23:45)
[2021-01-26] MEDS: LORazepam 1 MG TABLET PO SCH (23:55)
[2021-01-27] MEDS: KCL 10 MEQ IVPB 10 MEQ/100 ML INFUS.BAG IVPB SCH ×9 (00:15→22:15)
[2021-01-27] MEDS: methylPREDNISolone NA SUCC 40 MG/1 ML VIAL IVPUSH SCH ×3 (02:41→17:20)
[2021-01-27] MEDS: LORazepam 1 MG TABLET PO SCH ×4 (06:11→22:14)
[2021-01-27] MEDS: INSULIN SLIDING SCALE (NOVOLOG) 1 VIAL SQ SCH ×4 (06:39→22:23)
[2021-01-27 07:36] LABS: CHLORIDE 92 mmol/L (98-107); SODIUM 129 mmol/L (136-145)
[2021-01-27 07:39] LABS: ALBUMIN 1.7 g/dl (3.4-5.0); CO2 25 mmol/L (21-32); MAGNESIUM 1.6 mg/dL (1.8-2.4)
[2021-01-27 07:41] LABS: BLOOD UREA NITROGEN 20.2 mg/dL (7-18); CALCIUM 7.3 mg/dL (8.5-10.1); GLUCOSE,RANDOM 214 mg/dL (74-106)
[2021-01-27 07:42] LABS: CREATININE 2.5 mg/dL (0.55-1.3); SGOT/AST 78 U/L (15-37); SGPT/ALT 26 U/L (13-61)
[2021-01-27 07:44] LABS: CHOLESTEROL 142 mg/dL (50-200); PHOSPHOROUS 2.5 mg/dL (2.5-4.9); TOT PROT 7.5 g/dl (6.4-8.2); TRIGLYCERIDES 175 mg/dL (0-150)
[2021-01-27 07:46] LABS: ALK PHOS 312 U/L (45-117); BILIRUBIN,TOTAL 2.9 mg/dL (0.2-1); HDL CHOLESTEROL 13 mg/dL (40-60); LDL CHOLESTEROL (ONLY SJRH) 83 mg/dL (5-100)
[2021-01-27 07:47] LABS: ANION GAP 12 MMOL/L (8-16); HEMATOCRIT 22.1 % (35.4-49); HEMOGLOBIN 7.6 GM/dL (11.7-16.9); MCH 29.1 pg (25.7-33.7); MCHC 34.5 g/dl (32.0-35.9); MEAN CELL VOLUME 84.2 fl (80-96); MEAN PLT VOLUME 7.2 fl (7.5-11.1); PLATELET COUNT 307 10^3/uL (134-434); RBC 2.62 M/mm3 (4.00-5.60); RDW 21.3 % (11.9-15.9); WHITE BLOOD COUNT 14.2 K/mm3 (4.0-10.0)
[2021-01-27] MEDS: PANTOPRAZOLE 40 MG TABLET PO SCH ×2 (09:16→22:15)
[2021-01-27] MEDS: MAGNESIUM OXIDE 400 MG TABLET (FP) PO SCH ×2 (09:16→22:15)
[2021-01-27] MEDS: FOLIC ACID 1 MG TABLET (FP) PO SCH (09:16)
[2021-01-27] MEDS ORDERED: PT OWN MED DRAWER 7, Y5N ONE ×2 (09:21→14:59)
[2021-01-27] MEDS: BUDESONIDE/FORMETEROL FUMARATE 80/4.5 mcg INHALER IH SCH ×2 (09:34→22:15)
[2021-01-27] MEDS: THIAMINE HCL 200 MG/2 ML VIAL IVPB SCH (09:34)
[2021-01-27] MEDS: NICOTINE 14 MG/24 HOURS TOPICAL PATCH TD SCH (10:29)
[2021-01-27] MEDS ORDERED: POTASSIUM CHLORIDE TABS 20 MEQ TABLET.ER (FP) PO ONE (13:25)
[2021-01-27] MEDS ORDERED: MAGNESIUM SULF 50% (8.12 MEQ/2 ML-1 GM VIAL) IVPB ONE (13:25)
[2021-01-27] MEDS ORDERED: SODIUM CHLORIDE 1,000 ML with POTASSIUM CHLORIDE 10 MEQ IV SCH (13:26)
[2021-01-27] MEDS ORDERED: POTASSIUM CHLORIDE 10 MEQ in SODIUM CHLORIDE 1,000 ML IV SCH (13:34)
[2021-01-27] MEDS ORDERED: BENZOCAINE/MENTH/CETYLPYRD CL 1 EACH LOZENGE MM PRN (13:53)
[2021-01-27] MEDS ORDERED: DEXTROSE 5%-WATER - 50 ML IVPB ONE (17:07)
[2021-01-27] MEDS ORDERED: PIPERACILLIN/TAZOBACTAM 2.25 GM VIAL IVPB ONE (17:07)
[2021-01-27] MEDS: PIPERACILLIN/TAZOB 2.25 GM 2.25 GM in DEXTROSE 5%-WATER - 50 ML IVPB SCH (17:22)
[2021-01-27 19:33] LABS: BASO % 0.1 % (0-2.0); HEMATOCRIT 22.5 % (35.4-49); HEMOGLOBIN 7.5 GM/dL (11.7-16.9); LYMPH % 12.4 % (8-40); MCH 28.1 pg (25.7-33.7); MCHC 33.2 g/dl (32.0-35.9); MEAN CELL VOLUME 84.5 fl (80-96); MEAN PLT VOLUME 7.1 fl (7.5-11.1); MONO % 2.8 % (3.8-10.2); NEUT % 84.7 % (42.8-82.8); PLATELET COUNT 303 10^3/uL (134-434); RBC 2.66 M/mm3 (4.00-5.60); RDW 20.8 % (11.9-15.9); WHITE BLOOD COUNT 16.1 K/mm3 (4.0-10.0)
[2021-01-27 19:56] LABS: LACTIC ACID 2.8 mmol/L (0.4-2.0)
[2021-01-27 20:10] LABS: MAGNESIUM 2.1 mg/dL (1.8-2.4)
[2021-01-27] MEDS ORDERED: SODIUM CHLORIDE 500 ML IV STA (20:12)
[2021-01-27] MEDS ORDERED: INSULIN (LEVEMIR) 100 UNITS/ML UNITS SQ SCH (22:00)
[2021-01-28] MEDS ORDERED: DEXTROSE 5%-WATER - 50 ML IVPB ONE ×3 (01:35→11:17)
[2021-01-28] MEDS ORDERED: PIPERACILLIN/TAZOBACTAM 2.25 GM VIAL IVPB ONE ×2 (01:35→08:55)
[2021-01-28] MEDS: PIPERACILLIN/TAZOB 2.25 GM 2.25 GM in DEXTROSE 5%-WATER - 50 ML IVPB SCH ×2 (02:07→09:06)
[2021-01-28] MEDS: methylPREDNISolone NA SUCC 40 MG/1 ML VIAL IVPUSH SCH ×3 (02:07→17:01)
[2021-01-28] MEDS: LORazepam 1 MG TABLET PO SCH ×4 (05:28→23:00)
[2021-01-28 07:57] LABS: BLOOD UREA NITROGEN 29.1 mg/dL (7-18); CALCIUM 7.7 mg/dL (8.5-10.1); MAGNESIUM 2.1 mg/dL (1.8-2.4)
[2021-01-28 08:01] LABS: CREATININE 2.3 mg/dL (0.55-1.3)
[2021-01-28 08:02] LABS: BILIRUBIN,TOTAL 2.4 mg/dL (0.2-1); TOT PROT 7.9 g/dl (6.4-8.2)
[2021-01-28] MEDS ORDERED: PT OWN MED DRAWER 7, Y5N ONE (08:54)
[2021-01-28] MEDS: INSULIN SLIDING SCALE (NOVOLOG) 1 VIAL SQ SCH ×4 (09:03→23:01)
[2021-01-28] MEDS: BUDESONIDE/FORMETEROL FUMARATE 80/4.5 mcg INHALER IH SCH ×2 (09:07→23:02)
[2021-01-28] MEDS: PANTOPRAZOLE 40 MG TABLET PO SCH ×2 (09:07→23:00)
[2021-01-28] MEDS: FOLIC ACID 1 MG TABLET (FP) PO SCH (09:07)
[2021-01-28] MEDS: MAGNESIUM OXIDE 400 MG TABLET (FP) PO SCH ×2 (09:07→23:00)
[2021-01-28] MEDS: NICOTINE 14 MG/24 HOURS TOPICAL PATCH TD SCH (09:07)
[2021-01-28] MEDS: THIAMINE HCL 200 MG/2 ML VIAL IVPB SCH (10:01)
[2021-01-28] MEDS ORDERED: cefTRIAXone SODIUM 1 GM VIAL ONE (11:17)
[2021-01-28] MEDS: CEFTRIAXONE 1 GM in DEXTROSE 5%-WATER - 50 ML IVPB SCH (11:18)
[2021-01-28 11:53] LABS: BASO % 0.2 % (0-2.0); HEMATOCRIT 21.6 % (35.4-49); HEMOGLOBIN 7.2 GM/dL (11.7-16.9); LYMPH % 10.2 % (8-40); MCH 28.3 pg (25.7-33.7); MCHC 33.5 g/dl (32.0-35.9); MEAN CELL VOLUME 84.5 fl (80-96); MEAN PLT VOLUME 6.8 fl (7.5-11.1); MONO % 2.8 % (3.8-10.2); NEUT % 86.8 % (42.8-82.8); PLATELET COUNT 307 10^3/uL (134-434); RBC 2.56 M/mm3 (4.00-5.60); RDW 20.8 % (11.9-15.9); WHITE BLOOD COUNT 18.6 K/mm3 (4.0-10.0)
[2021-01-28 12:05] LABS: INR 1.2 (0.83-1.09); PROTHROMBIN TIME (PATIENT) 14.1 SEC (9.7-13.0)
[2021-01-28] MEDS: KCL 10 MEQ IVPB 10 MEQ/100 ML INFUS.BAG IVPB SCH ×3 (12:23→16:17)
[2021-01-28 12:25] LABS: BLOOD UREA NITROGEN 30.7 mg/dL (7-18); CALCIUM 8.2 mg/dL (8.5-10.1)
[2021-01-28 12:30] LABS: BILIRUBIN,TOTAL 2.4 mg/dL (0.2-1); CREATININE 2.4 mg/dL (0.55-1.3); TOT PROT 7.9 g/dl (6.4-8.2)
[2021-01-28] MEDS: POLYETHYLENE GLYCOL (HEALTHYLAX) 3350 17 GM PACKET PO SCH ×2 (14:21→23:00)
[2021-01-28 21:15] LABS: LACTIC ACID 3.2 mmol/L (0.4-2.0)
[2021-01-28] MEDS ORDERED: SODIUM CHLORIDE 500 ML IV STA (22:12)
[2021-01-28] MEDS: INSULIN (LEVEMIR) 100 UNITS/ML UNITS SQ SCH (23:01)
[2021-01-29] MEDS ORDERED: LORazepam 0.5 MG TABLET PO PRN
[2021-01-29] MEDS: methylPREDNISolone NA SUCC 40 MG/1 ML VIAL IVPUSH SCH ×3 (01:41→21:30)
[2021-01-29] MEDS: LORazepam 0.5 MG TABLET PO SCH ×2 (05:35→12:02)
[2021-01-29] MEDS: POLYETHYLENE GLYCOL (HEALTHYLAX) 3350 17 GM PACKET PO SCH ×3 (05:56→21:30)
[2021-01-29] MEDS: INSULIN (LEVEMIR) 100 UNITS/ML UNITS SQ SCH ×2 (06:25→21:32)
[2021-01-29] MEDS: INSULIN SLIDING SCALE (NOVOLOG) 1 VIAL SQ SCH ×4 (06:25→21:31)
[2021-01-29 08:48] LABS: BASO % 0.2 % (0-2.0); HEMATOCRIT 22.6 % (35.4-49); HEMOGLOBIN 7.8 GM/dL (11.7-16.9); LYMPH % 8.2 % (8-40); MCH 29.2 pg (25.7-33.7); MCHC 34.5 g/dl (32.0-35.9); MEAN CELL VOLUME 84.6 fl (80-96); MEAN PLT VOLUME 6.7 fl (7.5-11.1); MONO % 2.6 % (3.8-10.2); PLATELET COUNT 279 10^3/uL (134-434); RBC 2.67 M/mm3 (4.00-5.60); RDW 20.2 % (11.9-15.9); WHITE BLOOD COUNT 16.5 K/mm3 (4.0-10.0)
[2021-01-29 09:21] LABS: BILIRUBIN,TOTAL 2.2 mg/dL (0.2-1)
[2021-01-29 09:23] LABS: ALBUMIN 2.1 g/dl (3.4-5.0); BLOOD UREA NITROGEN 43.1 mg/dL (7-18); CALCIUM 7.5 mg/dL (8.5-10.1); TOT PROT 7.7 g/dl (6.4-8.2)
[2021-01-29 09:26] LABS: CREATININE 2.4 mg/dL (0.55-1.3)
[2021-01-29] MEDS ORDERED: cefTRIAXone SODIUM 1 GM VIAL ONE (10:03)
[2021-01-29] MEDS ORDERED: PT OWN MED DRAWER 7, Y5N ONE (10:03)
[2021-01-29] MEDS ORDERED: DEXTROSE 5%-WATER - 50 ML IVPB ONE (10:04)
[2021-01-29] MEDS: CEFTRIAXONE 1 GM in DEXTROSE 5%-WATER - 50 ML IVPB SCH (10:08)
[2021-01-29] MEDS: PANTOPRAZOLE 40 MG TABLET PO SCH ×2 (10:09→21:31)
[2021-01-29] MEDS: MAGNESIUM OXIDE 400 MG TABLET (FP) PO SCH ×2 (10:09→21:31)
[2021-01-29] MEDS: FOLIC ACID 1 MG TABLET (FP) PO SCH (10:09)
[2021-01-29] MEDS: NICOTINE 14 MG/24 HOURS TOPICAL PATCH TD SCH (10:09)
[2021-01-29] MEDS: BUDESONIDE/FORMETEROL FUMARATE 80/4.5 mcg INHALER IH SCH ×2 (10:10→21:30)
[2021-01-29] MEDS: THIAMINE HCL 200 MG/2 ML VIAL IVPB SCH (10:10)
[2021-01-30] MEDS ORDERED: LORazepam 0.5 MG TABLET PO ONE (05:00)
[2021-01-30] MEDS: POLYETHYLENE GLYCOL (HEALTHYLAX) 3350 17 GM PACKET PO SCH ×3 (05:05→22:33)
[2021-01-30] MEDS: INSULIN SLIDING SCALE (NOVOLOG) 1 VIAL SQ SCH ×4 (06:09→22:35)
[2021-01-30] MEDS: INSULIN (LEVEMIR) 100 UNITS/ML UNITS SQ SCH ×2 (06:09→22:34)
[2021-01-30] MEDS ORDERED: DEXTROSE 5%-WATER - 50 ML IVPB ONE (08:58)
[2021-01-30] MEDS ORDERED: cefTRIAXone SODIUM 1 GM VIAL ONE (08:58)
[2021-01-30] MEDS ORDERED: FUROSEMIDE 40 MG/4 ML INJECTABLE VIAL IVPUSH ONE (09:30)
[2021-01-30] MEDS: NICOTINE 14 MG/24 HOURS TOPICAL PATCH TD SCH (10:36)
[2021-01-30] MEDS: CEFTRIAXONE 1 GM in DEXTROSE 5%-WATER - 50 ML IVPB SCH (10:36)
[2021-01-30] MEDS: FOLIC ACID 1 MG TABLET (FP) PO SCH (10:36)
[2021-01-30] MEDS: MAGNESIUM OXIDE 400 MG TABLET (FP) PO SCH ×2 (10:36→22:33)
[2021-01-30] MEDS: methylPREDNISolone NA SUCC 40 MG/1 ML VIAL IVPUSH SCH ×2 (10:36→22:33)
[2021-01-30] MEDS: PANTOPRAZOLE 40 MG TABLET PO SCH ×2 (10:36→22:33)
[2021-01-30] MEDS: BUDESONIDE/FORMETEROL FUMARATE 80/4.5 mcg INHALER IH SCH ×2 (10:38→22:33)
[2021-01-30] MEDS ORDERED: SODIUM CHLORIDE 0.45% 1,000 ML IV SCH (11:15)
[2021-01-30 12:32] LABS: INR 1.16 (0.83-1.09); PROTHROMBIN TIME (PATIENT) 13.6 SEC (9.7-13.0)
[2021-01-30 12:33] LABS: BASO % 0.2 % (0-2.0); HEMATOCRIT 22.9 % (35.4-49); HEMOGLOBIN 7.6 GM/dL (11.7-16.9); LYMPH % 9.3 % (8-40); MCH 28.3 pg (25.7-33.7); MCHC 33.4 g/dl (32.0-35.9); MEAN CELL VOLUME 84.6 fl (80-96); MEAN PLT VOLUME 6.7 fl (7.5-11.1); MONO % 5.4 % (3.8-10.2); NEUT % 85.1 % (42.8-82.8); PLATELET COUNT 268 10^3/uL (134-434); RDW 20.6 % (11.9-15.9); WHITE BLOOD COUNT 14.3 K/mm3 (4.0-10.0)
[2021-01-30] MEDS: THIAMINE HCL 200 MG/2 ML VIAL IVPB SCH (12:37)
[2021-01-30 12:39] LABS: CALCIUM 8.5 mg/dL (8.5-10.1)
[2021-01-30 12:40] LABS: ALBUMIN 2.3 g/dl (3.4-5.0); BLOOD UREA NITROGEN 54.5 mg/dL (7-18); MAGNESIUM 2.4 mg/dL (1.8-2.4)
[2021-01-30 12:43] LABS: CREATININE 2.4 mg/dL (0.55-1.3)
[2021-01-30 12:44] LABS: BILIRUBIN,TOTAL 2.5 mg/dL (0.2-1); TOT PROT 7.5 g/dl (6.4-8.2)
[2021-01-31] MEDS: POLYETHYLENE GLYCOL (HEALTHYLAX) 3350 17 GM PACKET PO SCH ×3 (05:33→21:12)
[2021-01-31] MEDS: INSULIN (LEVEMIR) 100 UNITS/ML UNITS SQ SCH ×2 (06:00→23:13)
[2021-01-31] MEDS: INSULIN SLIDING SCALE (NOVOLOG) 1 VIAL SQ SCH ×4 (06:18→23:13)
[2021-01-31 08:22] LABS: URINE APPEARANCE CLEAR; URINE BILIRUBIN NEGATIVE (NEGATIVE); URINE COLOR DK YELLOW; URINE GLUCOSE (UA) NEGATIVE (NEGATIVE); URINE KETONE NEGATIVE (NEGATIVE); URINE LEUK ESTERASE NEGATIVE (NEGATIVE); URINE NITRITE NEGATIVE (NEGATIVE); URINE PROTEIN NEGATIVE (NEGATIVE)
[2021-01-31] MEDS ORDERED: amLODIPine BESYLATE 5 MG TABLET (FP) PO SCH (10:00)
[2021-01-31] MEDS ORDERED: PT OWN MED DRAWER 7, Y5N ONE (11:09)
[2021-01-31] MEDS: PANTOPRAZOLE 40 MG TABLET PO SCH ×2 (11:22→21:12)
[2021-01-31] MEDS: THIAMINE HCL 200 MG/2 ML VIAL IVPB SCH (11:22)
[2021-01-31] MEDS: FOLIC ACID 1 MG TABLET (FP) PO SCH (11:22)
[2021-01-31] MEDS: NICOTINE 14 MG/24 HOURS TOPICAL PATCH TD SCH (11:22)
[2021-01-31] MEDS: MAGNESIUM OXIDE 400 MG TABLET (FP) PO SCH ×2 (11:22→21:12)
[2021-01-31] MEDS: methylPREDNISolone NA SUCC 40 MG/1 ML VIAL IVPUSH SCH ×2 (11:22→21:12)
[2021-01-31] MEDS: BUDESONIDE/FORMETEROL FUMARATE 80/4.5 mcg INHALER IH SCH ×2 (11:23→21:13)
[2021-01-31 13:22] LABS: HEMATOCRIT 24.3 % (35.4-49); MCH 28.6 pg (25.7-33.7); MCHC 33.1 g/dl (32.0-35.9); MEAN CELL VOLUME 86.5 fl (80-96); MEAN PLT VOLUME 7.1 fl (7.5-11.1); PLATELET COUNT 288 10^3/uL (134-434); RBC 2.81 M/mm3 (4.00-5.60); RDW 20.6 % (11.9-15.9); WHITE BLOOD COUNT 18.1 K/mm3 (4.0-10.0)
[2021-01-31 13:41] LABS: ANISOCYTOSIS 1+; MACROCYTOSIS 1+; PLATELET ESTIMATE NORMAL; TARGET CELLS 1+
[2021-01-31 13:56] LABS: ALBUMIN 2.4 g/dl (3.4-5.0); CALCIUM 9.2 mg/dL (8.5-10.1)
[2021-01-31 13:57] LABS: BLOOD UREA NITROGEN 59.9 mg/dL (7-18); MAGNESIUM 2.2 mg/dL (1.8-2.4)
[2021-01-31 14:00] LABS: CREATININE 2.2 mg/dL (0.55-1.3)
[2021-01-31 14:01] LABS: BILIRUBIN,TOTAL 2.8 mg/dL (0.2-1); TOT PROT 7.9 g/dl (6.4-8.2)
[2021-02-01] MEDS: INSULIN SLIDING SCALE (NOVOLOG) 1 VIAL SQ SCH ×4 (06:54→21:58)
[2021-02-01] MEDS: POLYETHYLENE GLYCOL (HEALTHYLAX) 3350 17 GM PACKET PO SCH ×3 (06:54→21:57)
[2021-02-01] MEDS: INSULIN (LEVEMIR) 100 UNITS/ML UNITS SQ SCH ×2 (06:54→21:59)
[2021-02-01 07:18] LABS: HEMATOCRIT 21.3 % (35.4-49); MCH 28.2 pg (25.7-33.7); MCHC 32.6 g/dl (32.0-35.9); MEAN CELL VOLUME 86.4 fl (80-96); PLATELET COUNT 272 10^3/uL (134-434); RBC 2.47 M/mm3 (4.00-5.60); RDW 20.9 % (11.9-15.9); WHITE BLOOD COUNT 18.4 K/mm3 (4.0-10.0)
[2021-02-01 08:01] LABS: CALCIUM 9.3 mg/dL (8.5-10.1)
[2021-02-01 08:02] LABS: ALBUMIN 2.3 g/dl (3.4-5.0); BLOOD UREA NITROGEN 60.5 mg/dL (7-18); MAGNESIUM 2.2 mg/dL (1.8-2.4)
[2021-02-01 08:05] LABS: CREATININE 2.1 mg/dL (0.55-1.3)
[2021-02-01 08:06] LABS: BILIRUBIN,TOTAL 2.3 mg/dL (0.2-1)
[2021-02-01 08:07] LABS: TOT PROT 7.2 g/dl (6.4-8.2)
[2021-02-01] MEDS ORDERED: FUROSEMIDE 40 MG/4 ML INJECTABLE VIAL IVPUSH ONE (08:23)
[2021-02-01] MEDS ORDERED: PT OWN MED DRAWER 7, Y5N ONE ×4 (08:51→14:28)
[2021-02-01] MEDS ORDERED: REGADENOSON 0.4 MG/5 ML PRE-FILLED SYRINGE IVPUSH ONE ×2 (09:00→10:00)
[2021-02-01] MEDS: amLODIPine BESYLATE 10 MG TABLET (FP) PO SCH (09:22)
[2021-02-01] MEDS: FOLIC ACID 1 MG TABLET (FP) PO SCH (09:22)
[2021-02-01] MEDS: MAGNESIUM OXIDE 400 MG TABLET (FP) PO SCH ×2 (09:22→21:58)
[2021-02-01] MEDS: methylPREDNISolone NA SUCC 40 MG/1 ML VIAL IVPUSH SCH ×2 (09:22→21:57)
[2021-02-01] MEDS: PANTOPRAZOLE 40 MG TABLET PO SCH ×2 (09:22→21:57)
[2021-02-01] MEDS: BUDESONIDE/FORMETEROL FUMARATE 80/4.5 mcg INHALER IH SCH ×2 (09:22→21:57)
[2021-02-01] MEDS: THIAMINE HCL 200 MG/2 ML VIAL IVPB SCH (09:23)
[2021-02-01 09:53] LABS: ANISOCYTOSIS 1+; MACROCYTOSIS 0; OVALOCYTE 1+; PLATELET ESTIMATE NORMAL; TARGET CELLS 2+
[2021-02-01] MEDS: NYSTATIN 500,000 UNITS/5 ML SUSPENSION PO SCH ×2 (14:51→18:09)
[2021-02-01] MEDS: NICOTINE 14 MG/24 HOURS TOPICAL PATCH TD SCH (14:51)
[2021-02-01] MEDS: LORazepam 1 MG TABLET PO PRN (16:50)
[2021-02-02] MEDS: NYSTATIN 500,000 UNITS/5 ML SUSPENSION PO SCH ×4 (00:10→17:36)
[2021-02-02] MEDS: LORazepam 1 MG TABLET PO PRN (00:10)
[2021-02-02] MEDS: POLYETHYLENE GLYCOL (HEALTHYLAX) 3350 17 GM PACKET PO SCH ×3 (05:07→22:59)
[2021-02-02] MEDS: INSULIN (LEVEMIR) 100 UNITS/ML UNITS SQ SCH ×2 (06:54→23:00)
[2021-02-02] MEDS: INSULIN SLIDING SCALE (NOVOLOG) 1 VIAL SQ SCH ×4 (06:54→22:59)
[2021-02-02 07:51] LABS: HEMATOCRIT 22.5 % (35.4-49); HEMOGLOBIN 7.6 GM/dL (11.7-16.9); MCHC 33.7 g/dl (32.0-35.9); PLATELET COUNT 278 10^3/uL (134-434); RBC 2.61 M/mm3 (4.00-5.60); RDW 20.7 % (11.9-15.9); WHITE BLOOD COUNT 20.7 K/mm3 (4.0-10.0)
[2021-02-02 08:34] LABS: ALBUMIN 2.3 g/dl (3.4-5.0); BLOOD UREA NITROGEN 61.8 mg/dL (7-18); CALCIUM 9.3 mg/dL (8.5-10.1); MAGNESIUM 1.7 mg/dL (1.8-2.4)
[2021-02-02] MEDS ORDERED: MAGNESIUM OXIDE 400 MG TABLET (FP) PO ONE (08:36)
[2021-02-02 08:39] LABS: BILIRUBIN,TOTAL 3.8 mg/dL (0.2-1); TOT PROT 7.1 g/dl (6.4-8.2)
[2021-02-02] MEDS ORDERED: PT OWN MED DRAWER 7, Y5N ONE (09:15)
[2021-02-02] MEDS: methylPREDNISolone NA SUCC 40 MG/1 ML VIAL IVPUSH SCH (09:24)
[2021-02-02] MEDS: THIAMINE HCL 200 MG/2 ML VIAL IVPB SCH (09:24)
[2021-02-02] MEDS: FOLIC ACID 1 MG TABLET (FP) PO SCH (09:25)
[2021-02-02] MEDS: PANTOPRAZOLE 40 MG TABLET PO SCH ×2 (09:25→22:57)
[2021-02-02] MEDS: amLODIPine BESYLATE 10 MG TABLET (FP) PO SCH (09:25)
[2021-02-02] MEDS: NICOTINE 14 MG/24 HOURS TOPICAL PATCH TD SCH (09:25)
[2021-02-02] MEDS: BUDESONIDE/FORMETEROL FUMARATE 80/4.5 mcg INHALER IH SCH ×2 (09:25→23:16)
[2021-02-02] MEDS: MAGNESIUM OXIDE 400 MG TABLET (FP) PO SCH ×2 (09:44→22:57)
[2021-02-02 11:18] LABS: ANISOCYTOSIS 1+; MACROCYTOSIS 0; PLATELET ESTIMATE NORMAL; TARGET CELLS 2+
[2021-02-02] MEDS: hydrALAZINE HCL 10 MG TABLET PO SCH ×2 (14:34→22:57)
[2021-02-03] MEDS: NYSTATIN 500,000 UNITS/5 ML SUSPENSION PO SCH ×4 (01:25→17:48)
[2021-02-03] MEDS: hydrALAZINE HCL 10 MG TABLET PO SCH (06:23)
[2021-02-03] MEDS: POLYETHYLENE GLYCOL (HEALTHYLAX) 3350 17 GM PACKET PO SCH ×3 (06:23→21:31)
[2021-02-03] MEDS: INSULIN (LEVEMIR) 100 UNITS/ML UNITS SQ SCH ×2 (06:24→21:32)
[2021-02-03] MEDS: INSULIN SLIDING SCALE (NOVOLOG) 1 VIAL SQ SCH ×4 (06:24→21:32)
[2021-02-03] MEDS: BUDESONIDE/FORMETEROL FUMARATE 80/4.5 mcg INHALER IH SCH ×2 (09:25→21:32)
[2021-02-03] MEDS ORDERED: PT OWN MED DRAWER 7, Y5N ONE (10:17)
[2021-02-03] MEDS: predniSONE 10 MG TABLET (UD) PO SCH (10:21)
[2021-02-03] MEDS: amLODIPine BESYLATE 10 MG TABLET (FP) PO SCH (10:21)
[2021-02-03] MEDS: FOLIC ACID 1 MG TABLET (FP) PO SCH (10:21)
[2021-02-03] MEDS: MAGNESIUM OXIDE 400 MG TABLET (FP) PO SCH ×2 (10:21→21:31)
[2021-02-03] MEDS: PANTOPRAZOLE 40 MG TABLET PO SCH ×2 (10:21→21:32)
[2021-02-03] MEDS: NICOTINE 14 MG/24 HOURS TOPICAL PATCH TD SCH (10:22)
[2021-02-03] MEDS: THIAMINE HCL 200 MG/2 ML VIAL IVPB SCH (10:22)
[2021-02-03] MEDS ORDERED: MAGNESIUM OXIDE 400 MG TABLET (FP) PO ONE (10:47)
[2021-02-03] MEDS: hydrALAZINE HCL 25 MG TABLET (FP) PO SCH ×2 (14:52→21:05)
[2021-02-03] MEDS ORDERED: FUROSEMIDE 40 MG/4 ML INJECTABLE VIAL IVPUSH ONE (15:17)
[2021-02-03] MEDS ORDERED: DEXTROSE 5%-WATER - 50 ML IVPB ONE (17:21)
[2021-02-03] MEDS ORDERED: PIPERACILLIN/TAZOBACTAM 3.375 GM VIAL IVPB ONE (17:21)
[2021-02-03] MEDS: PIPERACILLIN/TAZOB 3.375 GM 3.375 GM in DEXTROSE 5%-WATER - 50 ML IVPB SCH (17:49)
[2021-02-04] MEDS: NYSTATIN 500,000 UNITS/5 ML SUSPENSION PO SCH ×4 (01:04→18:44)
[2021-02-04] MEDS: PIPERACILLIN/TAZOB 3.375 GM 3.375 GM in DEXTROSE 5%-WATER - 50 ML IVPB SCH ×3 (01:05→18:44)
[2021-02-04] MEDS: hydrALAZINE HCL 25 MG TABLET (FP) PO SCH ×2 (07:06→15:03)
[2021-02-04] MEDS: POLYETHYLENE GLYCOL (HEALTHYLAX) 3350 17 GM PACKET PO SCH ×2 (07:06→15:05)
[2021-02-04] MEDS: INSULIN (LEVEMIR) 100 UNITS/ML UNITS SQ SCH (07:08)
[2021-02-04] MEDS: INSULIN SLIDING SCALE (NOVOLOG) 1 VIAL SQ SCH ×3 (07:09→17:18)
[2021-02-04] MEDS ORDERED: hydrALAZINE HCL 25 MG TABLET (FP) PO ONE (08:20)
[2021-02-04 09:10] VITALS: TEMP 98
[2021-02-04] MEDS ORDERED: PIPERACILLIN/TAZOBACTAM 3.375 GM VIAL IVPB ONE (09:29)
[2021-02-04] MEDS ORDERED: DEXTROSE 5%-WATER - 50 ML IVPB ONE (09:29)
[2021-02-04] MEDS: MAGNESIUM OXIDE 400 MG TABLET (FP) PO SCH (09:31)
[2021-02-04] MEDS: amLODIPine BESYLATE 10 MG TABLET (FP) PO SCH (09:31)
[2021-02-04] MEDS: FOLIC ACID 1 MG TABLET (FP) PO SCH (09:31)
[2021-02-04] MEDS: PANTOPRAZOLE 40 MG TABLET PO SCH (09:31)
[2021-02-04] MEDS ORDERED: PT OWN MED DRAWER 7, Y5N ONE (09:33)
[2021-02-04] MEDS: predniSONE 10 MG TABLET (UD) PO SCH (09:34)
[2021-02-04] MEDS: NICOTINE 14 MG/24 HOURS TOPICAL PATCH TD SCH (09:34)
[2021-02-04] MEDS: BUDESONIDE/FORMETEROL FUMARATE 80/4.5 mcg INHALER IH SCH (09:35)
[2021-02-04] MEDS: THIAMINE HCL 200 MG/2 ML VIAL IVPB SCH (10:01)
[2021-02-04 10:05] LABS: BASO % 0.3 % (0-2.0); HEMATOCRIT 23.5 % (35.4-49); HEMOGLOBIN 7.5 GM/dL (11.7-16.9); LYMPH % 11.2 % (8-40); MCHC 32.1 g/dl (32.0-35.9); MEAN CELL VOLUME 87.4 fl (80-96); MEAN PLT VOLUME 7.1 fl (7.5-11.1); MONO % 9.4 % (3.8-10.2); NEUT % 79.1 % (42.8-82.8); PLATELET COUNT 270 10^3/uL (134-434); RBC 2.69 M/mm3 (4.00-5.60); RDW 21.8 % (11.9-15.9); WHITE BLOOD COUNT 18.8 K/mm3 (4.0-10.0)
[2021-02-04 10:24] LABS: ALBUMIN 2.5 g/dl (3.4-5.0); BLOOD UREA NITROGEN 42.2 mg/dL (7-18); CALCIUM 9.2 mg/dL (8.5-10.1); MAGNESIUM 1.9 mg/dL (1.8-2.4)
[2021-02-04 10:27] LABS: CREATININE 1.6 mg/dL (0.55-1.3)
[2021-02-04 10:29] LABS: BILIRUBIN,TOTAL 2.5 mg/dL (0.2-1); TOT PROT 6.9 g/dl (6.4-8.2)
[2021-02-04] MEDS ORDERED: FUROSEMIDE 40 MG TABLET (FP) PO SCH (12:00)
[2021-02-04] MEDS ORDERED: REGADENOSON 0.4 MG/5 ML PRE-FILLED SYRINGE IVPUSH ONE ×2 (12:21→12:45)
[2021-02-04] MEDS ORDERED: INSULIN (LEVEMIR) 100 UNITS/ML UNITS SQ SCH (14:27)
[2021-02-04 15:32] VITALS: BP 143/80; PULSE 98
[2021-02-05] MEDS ORDERED: predniSONE 20 MG TABLET (UD) PO SCH (10:00)
== END 2021-02-04 18:48 | disposition left against medical advice (07) | DRG 872 ==
LOC: JER 15:17 → JERBED 18:01 → J4S 22:55
PROVIDERS: ADMIT Internal Medicine; ATTEND Nurse Practitioner Acute Care
DX: A41.89 Other specified sepsis (principal); Z68.41 Body mass index [BMI] 40.0-44.9, adult; I50.32 Chronic diastolic (congestive) heart failure; I24.8 Other forms of acute ischemic heart disease; N17.9 Acute kidney failure, unspecified; E87.2 Acidosis; K92.2 Gastrointestinal hemorrhage, unspecified; E87.1 Hypo-osmolality and hyponatremia; J44.1 Chronic obstructive pulmonary disease with (acute) exacerbation; E78.5 Hyperlipidemia, unspecified; E11.9 Type 2 diabetes mellitus without complications; E66.01 Morbid (severe) obesity due to excess calories; K64.4 Residual hemorrhoidal skin tags; D64.9 Anemia, unspecified; R29.6 Repeated falls; E87.6 Hypokalemia; I11.0 Hypertensive heart disease with heart failure; F10.10 Alcohol abuse, uncomplicated; G47.33 Obstructive sleep apnea (adult) (pediatric); K59.00 Constipation, unspecified; R16.0 Hepatomegaly, not elsewhere classified; R00.0 Tachycardia, unspecified; D72.829 Elevated white blood cell count, unspecified; I95.9 Hypotension, unspecified; R94.5 Abnormal results of liver function studies; R19.5 Other fecal abnormalities; W18.39XA Other fall on same level, initial encounter; Y92.098 Other place in other non-institutional residence as the place of occurrence of the external cause; F17.200 Nicotine dependence, unspecified, uncomplicated; R91.1 Solitary pulmonary nodule; R94.31 Abnormal electrocardiogram [ECG] [EKG]
CPT/HCPCS: 36415; 36430; 36511; 70450-TC; 71045-TC-FY; 71250-TC; 74176-TC; 76705-TC; 76775-TC; 76856-TC; 78452-TC; 80048; 80053; 80061; 81003; 82272; 82436; 82550; 82570; 82728; 82803; 82962; 83036; 83540; 83550; 83605; 83735; 83880; 84100; 84132; 84133; 84300; 84443; 84484; 85025; 85027; 85045; 85610; 85730; 86850; 86900; 86901; 86922; 87040; 87086; 87804; 93005; 93010; 93017; 93306-TC; 97116-GP; 97161-GP; 99285-25; A9502; C9803; J2785; P9038; P9058; U0003; U0005